=== PATIENT | female | born 1980 | race African-American/Black ===

== ENCOUNTER 2016-12-16 11:21 | Emergency (ER) | payer OTHER ==
[2016-12-16 11:26] VITALS: BMI 51.5
--- NOTE | 2016-12-16 11:29 | DR.GENAD ---
HPI - PCP Primary Care Physician: MONICA Fowler HPI Comment HPI Comment: HISTORY BELOW. - Complaint/Symptoms Chief Complaint Doctors Comments: PATIENT ON TEGRETOL FOR TRIGEMINAL NEURALGIA. PROGRESIVE DISCOMFORT. TODAY SUDDEN ONSETOF SEVERE PAIN CAUSING PATIENT FEEL LIKE HER HEAD IS ABOUT TO BURST OPEN. NO FEVER. Chief Complaint:: NERVE PAIN IN FACE ON THE LEFT SIDE - Nurses notes reviewed Nurses Notes Review: Yes - Source History Provided: Patient - Mode of Arrival Mode of Arrival: Ambulatory - Timing Onset of Chief Complaint: 12/09/16 Came on: Suddenly - Duration Duration: Constant Duration: Hours - Severity Severity: Severe PMH - PMH Past Medical History: Yes Past Medical History: Hypertension, Seizures Past Surgical History: Yes Surgical History: Cholecystectomy - Family History History of Family Medical Conditions: Yes Family Medical History: Diabetes Mellitus, Cancer, Hypertension - Social History Does patient currently use any type of tobacco product: Yes Have you used tobacco products in the last 12 months: Yes Type of Tobacco Use: Cigarettes How many years tobacco product used: 11 Does any household member use tobacco: No Alcohol Use: None Do you use any recreational Drugs:: No Lives With: Family Lives Where: Home - infectious screening In the last 2 months have you had wt loss of >10#?: NO Have you had fever, night sweats or hemotysis?: No Have you traveled outside the country in the last 6 months?: No Isolation: Standard ROS - Review of Systems Constitutional: No Symptoms Reported Eyes: Blurred Vision (LT). negative: Eye Pain, Discharge ENTM: negative: Ear Pain, Nose Discharge, Epistaxis, Nose Congestion, Throat Pain Respiratoy: No Symptoms Reported. negative: Productive Cough, Non-Productive Cough, Short of Breath, Wheezing, Hemoptysis Cardiovascular: No Symptoms Reported. negative: Chest Pain Gastrointestinal/Abdominal: No Symptoms Reported. negative: Abdominal Pain, Constipation, Diarrhea, Nausea, Vomiting Genitourinary: No Symptoms Reported. negative: Dysuria, Frequency, Hematuria Neurological: Pre-existing Deficit (TRIGEMINAL NEURALGIA WITH ACUTE FLARE UP.). negative: Weakness, Dizziness Musculoskeletal: Muscle Pain (LT FACE AND SCALP.) Integumentary: Other (LEFT FACE AND SCALP TENDER.) Hematologic/Lymphatic: No Symptoms Reported Endocrine: No Symptoms Reported All Other Systems: Reviewed and Negative PE - Vital Signs Vitals: Temperature 98 F Pulse Rate [Right Brachial] 70 Pulse Rate 90 Respiratory Rate 18 Blood Pressure [Left Arm] 127/85 Blood Pressure 185/86 O2 Sat by Pulse Oximetry 99 - General Limitations: No Limitations General Appearance: Alert - Head Head Exam: Other (LEFT FACE AND SCALP TENDER.) - Eyes Eye exam: Normal Appearance - ENT ENT Exam: Normal External Ear Exam External Ear Exam: Normal External Inspection TM/Canal Exam: Bilateral Normal Nose Exam: Normal Nose Exam Mouth Exam: Trismus (MILD TRISMUS), Other (LEFT SCALP AND FACE PAINFULL AND TENDE) Throat Exam: Normal Inspection - Neck Neck Exam: Normal Inspection - Chest Chest Inspection: Symmetric Chest Wall Rise - Respiratory Respiratory Exam: Normal Lung Sounds Bilat Respiratory Exam: Bilateral Clear to Auscultation - Cardiovascular Cardiovascular Exam: Regular Rate, Normal Rhythm, Normal Heart Sounds - Abdominal Exam Abdominal Exam: Normal Bowel Sounds, Soft. negative: Tenderness - Extremities Extremities Exam: Normal Inspection - Back Back Exam: Normal Inspection - Neurologic Neurological Exam: Alert, Oriented X3 - Psychiatric Psychiatric Exam: Normal Affect, Normal Mood - Skin Skin Exam: Normal Color MDM - Differential Diagnosis Differential Diagnosis: TRIGEMINAL NEURALGIA, FACIAL PAIN, SINUSITIS Course - Treatment Treatment: SEE ORDERS - Education/Counseling Education/Counseling: Patient, Education Educated On: Treatment, Diagnosis, Needs for Follow Up ROR - Labs Reviewed Laboratory: Carbamazepine 8.0 ug/mL (4-12) 12/16/16 11:55 - Diagnosis Discharge Problem: FH: trigeminal neuralgia - Discharge Plan Disposition: 01 HOME, SELF-CARE Condition: Stable - Follow ups/Referrals Follow ups/Referrals: REID ANDERSON [Primary Care Provider] - 3 days - Instructions Instructions: Trigeminal Neuralgia Additional Instructions: RETURN TO ED IF WORSE.
[2016-12-16] MEDS ORDERED: PHENERGAN INJ 25 MG IM ONE (11:31)
[2016-12-16] MEDS ORDERED: DEMEROL INJ IM ONE (11:31)
[2016-12-16] MEDS ORDERED: PHENERGAN INJ 25 MG ONE (11:34)
[2016-12-16] MEDS ORDERED: DEMEROL INJ ONE (11:34)
[2016-12-16 12:27] VITALS: BP 127/85
== END 2016-12-16 12:52 | disposition home or self-care (01) ==
LOC: ER 11:32
DX: G50.0 Trigeminal neuralgia (principal)
CPT/HCPCS: 36415; 80156; 96372; 99282; J2175; J2550

== ENCOUNTER 2017-08-23 18:06 | Emergency (ER) | payer OTHER ==
[2017-08-23 18:10] VITALS: BP 130/96; BMI 56.4
--- NOTE | 2017-08-23 18:23 | DR.GENAD ---
HPI - PCP Primary Care Physician: adams - HPI Comment HPI Comment: known trigeminal neuralgia with multiple prior flares. Pt states its flared up this time due to weather changing. Normally carbamazepine works for her. - Complaint/Symptoms Chief Complaint:: pt stated she has trigimal neuralgia and her left jaw is very painfull - Nurses notes reviewed Nurses Notes Review: Yes - Source History Provided: Patient - Mode of Arrival Mode of Arrival: Ambulatory - Timing Onset of Chief Complaint: 08/19/17 PMH - PMH Past Medical History: Yes Past Medical History: Hypertension, Seizures Past Medical History Comment: trigeminal neuralgia Past Surgical History: Yes Surgical History: Cholecystectomy - Family History History of Family Medical Conditions: Yes Family Medical History: Diabetes Mellitus, Cancer, Hypertension - Social History Does patient currently use any type of tobacco product: Yes Have you used tobacco products in the last 12 months: Yes Type of Tobacco Use: Cigarettes How many years tobacco product used: 10 Does any household member use tobacco: Yes Alcohol Use: None Do you use any recreational Drugs:: No Lives With: Family Lives Where: Home - infectious screening In the last 2 months have you had wt loss of >10#?: NO Have you had fever, night sweats or hemotysis?: No Have you traveled outside the country in the last 6 months?: No Isolation: Standard ROS - Review of Systems Constitutional: No Symptoms Reported Eyes: No Symptoms Reported ENTM: See HPI Respiratoy: No Symptoms Reported Cardiovascular: No Symptoms Reported Gastrointestinal/Abdominal: No Symptoms Reported Genitourinary: No Symptoms Reported Neurological: Other (facial pain left side) Musculoskeletal: No Symptoms Reported Integumentary: No Symptoms Reported Hematologic/Lymphatic: No Symptoms Reported Endocrine: No Symptoms Reported Psychiatric: No Symptoms Reported All Other Systems: Reviewed and Negative PE - Vital Signs Vitals: Temperature 98.7 F Pulse Rate 77 Respiratory Rate 16 Blood Pressure [Left Arm] 127/85 Blood Pressure 130/96 O2 Sat by Pulse Oximetry 100 - General Limitations: No Limitations General Appearance: Alert, In No Apparent Distress - Head Head Exam: Normal Inspection, Normocephalic, Other (slight swelling left face) - Eyes Eye exam: Normal Appearance - ENT ENT Exam: Normal Exam, Normal Oropharynx Nose Exam: Normal Nose Exam. negative: Sinus Tenderness Mouth Exam: Normal Inspection Throat Exam: Normal Inspection - Neck Neck Exam: Normal Inspection, Full ROM. negative: Tenderness, Meningismus, Lymphadenopathy - Respiratory Respiratory Exam: Normal Lung Sounds Bilat Respiratory Exam: Bilateral Clear to Auscultation - Cardiovascular Cardiovascular Exam: Regular Rate, Normal Rhythm - Abdominal Exam Abdominal Exam: Normal Inspection, Normal Bowel Sounds, Soft - Neurologic Neurological Exam: Alert, Other (left side of face tender to palp) - Skin Skin Exam: Warm, Dry, Intact. negative: Rash - Diagnosis Discharge Problem: Trigeminal neuralgia pain - Discharge Plan Disposition: HOME, SELF-CARE Condition: Stable Prescriptions: Hydrocodone-Acet 5 mg/325 mg [[place] 5/325 mg Tab] 1 tab PO Q6H PRN #12 tab PRN Reason: Pain - Follow ups/Referrals Follow ups/Referrals: REID ANDERSON [Primary Care Provider] - 3 days - Instructions Additional Notes - Additional Notes Additional Notes: pt states she got relief with morphine IM. Will d/c home with a few lortab until flare subsides. Pt ureged to f/u neurosurg for definitive tx.
[2017-08-23] MEDS ORDERED: MORPHINE SULFATE INJ 2 MG INJ IM ONE (18:32)
[2017-08-23] MEDS ORDERED: ZOFRAN TAB 4 MG PO ONE (18:33)
[2017-08-23] MEDS ORDERED: MORPHINE SULFATE INJ 2 MG INJ ONE (18:40)
[2017-08-23] MEDS ORDERED: ZOFRAN TAB 4 MG ONE (18:40)
== END 2017-08-23 19:22 | disposition home or self-care (01) ==
LOC: ER 18:17
DX: G50.0 Trigeminal neuralgia (principal)
CPT/HCPCS: 96372; 99282; S0181; J2270

== ENCOUNTER 2017-11-04 16:34 | Emergency (ER) | payer OTHER ==
[2017-11-04 16:54] VITALS: BP 160/101; BMI 54.1
--- NOTE | 2017-11-04 17:22 | DR.GENAD ---
HPI - PCP Primary Care Physician: MONICA - Complaint/Symptoms Chief Complaint Doctors Comments: Sharp/stabbing right sided facial pain that recurred today. It worsens with speaking or chewing. She gave a hx. of trigeminal neuralgia that is managed by: Phenytoin 200mg TID; Tegretol 200mg TID and Lyrica 100mg BID. Chief Complaint:: COMPLAIN OF PAIN TO LEFT JAW AREA ONSET THIS AM AND HAS TAKEN MEDS WITHOUT RELIEF. DR. ANDERSON WAS GIVING MEDS AND PT HAS BEEN GOOD AND HASNT HAD MEDS. Self Treatment fo Chief Complaint: RX MEDS - Nurses notes reviewed Nurses Notes Review: Yes - Source History Provided: Patient - Mode of Arrival Mode of Arrival: Ambulatory - Timing Onset of Chief Complaint: 11/04/17 PMH - PMH Past Medical History: Yes Past Medical History: Hypertension, Seizures Past Medical History Comment: Lt. sided trigeminal neuralgia. Past Surgical History: Yes Surgical History: Cholecystectomy - Family History History of Family Medical Conditions: Yes Family Medical History: Diabetes Mellitus, Cancer, Hypertension - Social History Type of Tobacco Use: Cigarettes Alcohol Use: None Do you use any recreational Drugs:: No Lives With: Family Lives Where: Home - infectious screening In the last 2 months have you had wt loss of >10#?: NO Have you had fever, night sweats or hemotysis?: No Have you traveled outside the country in the last 6 months?: No Isolation: Standard ROS - Review of Systems Constitutional: No Symptoms Reported Eyes: No Symptoms Reported ENTM: No Symptoms Reported Respiratoy: No Symptoms Reported Cardiovascular: No Symptoms Reported Gastrointestinal/Abdominal: No Symptoms Reported Genitourinary: No Symptoms Reported Neurological: No Symptoms Reported Musculoskeletal: No Symptoms Reported Integumentary: Other (left sided facial pain) Hematologic/Lymphatic: No Symptoms Reported Endocrine: No Symptoms Reported Psychiatric: No Symptoms Reported All Other Systems: Reviewed and Negative PE - Vital Signs Vitals: Temperature 97.9 F Pulse Rate 84 Respiratory Rate 14 Blood Pressure [Left Arm] 127/85 Blood Pressure 160/101 O2 Sat by Pulse Oximetry 98 - General Limitations: No Limitations General Appearance: Alert, In No Apparent Distress - Head Head Exam: Normal Inspection - Eyes Eye exam: Normal Appearance - ENT ENT Exam: Normal Exam - Neck Neck Exam: Normal Inspection - Chest Chest Inspection: Normal Inspection - Respiratory Respiratory Exam: Normal Lung Sounds Bilat - Cardiovascular Cardiovascular Exam: Regular Rate, Normal Rhythm, +S1, +S2 - Abdominal Exam Abdominal Exam: Normal Inspection, Normal Bowel Sounds, Soft - Extremities Extremities Exam: Normal Inspection, Full ROM - Back Back Exam: Normal Inspection - Neurologic Neurological Exam: Alert, Oriented X3 - Psychiatric Psychiatric Exam: Normal Affect, Normal Mood - Skin Skin Exam: Warm, Dry, Intact, Normal Color, Other (Increase sensitivity/pain on right alena-auricular area.) Course - Reevaluation 1st: Improved 2nd: Improved - Education/Counseling Education/Counseling: Patient, Education, Counseling Educated On: Treatment, Diagnosis, Prognosis, Needs for Follow Up - Diagnosis Discharge Problem: Trigeminal neuralgia of left side of face - Discharge Plan Disposition: 01 HOME, SELF-CARE Condition: Stable - Follow ups/Referrals Follow ups/Referrals: REID ANDERSON [Primary Care Provider] - 3 days - Instructions Instructions: Neuropathic Pain, Trigeminal Neuralgia
[2017-11-04] MEDS ORDERED: LIORESAL PO ONE (17:23)
[2017-11-04] MEDS ORDERED: TORADOL 60 MG VIAL IM ONE (17:23)
[2017-11-04] MEDS ORDERED: TORADOL 60 MG VIAL ONE (17:29)
== END 2017-11-04 18:20 | disposition home or self-care (01) ==
LOC: ER 16:58
DX: G50.0 Trigeminal neuralgia (principal)
CPT/HCPCS: 96372; 99282; J1885